=== PATIENT | male | born 1980 | race African-American/Black ===

== ENCOUNTER 2022-11-11 00:45 | Emergency (ER) | payer OTHER ==
[2022-11-11 01:19] VITALS: BP 131/87; PULSE 94; RESP 20; TEMP 98.5; BMI 32.1
[2022-11-11] MEDS ORDERED: DEXAMETHASONE SOD PHOSPHATE 10 MG/1 ML VIAL PO ONE (01:26)
[2022-11-11] MEDS ORDERED: DEXAMETHASONE SOD PHOSPHATE 10 MG/1 ML VIAL ONE (01:29)
== END 2022-11-11 01:34 | disposition home or self-care (01) ==
LOC: JER 00:45
DX: U07.1 COVID-19 (principal)
CPT/HCPCS: 0241U-QW; 99283-25; J1100

== ENCOUNTER 2023-07-25 17:46 | Emergency (ER) | payer OTHER ==
[2023-07-25 17:51] VITALS: BP 120/84; PULSE 92; RESP 18; TEMP 99; BMI 30.7
[2023-07-25] MEDS ORDERED: DIPHTH,PERTUSS(ACELL),TET 0.5 ML DISP.SYRIN IM ONE ×2 (18:04→18:16)
== END 2023-07-25 18:49 | disposition home or self-care (01) ==
LOC: JERFT 17:46
PROC: 0HQGXZZ Repair Left Hand Skin, External Approach (ICD-10-PCS; principal; 2023-07-25)
PROC: 3E0234Z Introduction of Serum, Toxoid and Vaccine into Muscle, Percutaneous Approach (ICD-10-PCS; 2023-07-25)
DX: S61.211A Laceration without foreign body of left index finger without damage to nail, initial encounter (principal); W26.0XXA Contact with knife, initial encounter
CPT/HCPCS: 12001-25; 90471; 90715; 99282-25